=== PATIENT | female | born 2000 | race Caucasian/White ===

== ENCOUNTER 2019-01-14 02:05 | Emergency (ER) | payer SELFPAY ==
[2019-01-14] MEDS ORDERED: Ondansetron PF 4 MG/2 ML Vial ONE (02:54)
[2019-01-14 02:55] LABS: #Basophils 0.1 thou/uL (0.0-0.2); #Eosinphils 0.7 thou/uL (0.0-0.7); #Lymphocytes 3.3 thou/uL (1.20-3.40); #Monocytes 0.6 thou/uL (0.11-0.59); #Neutrophils 3.9 thou/uL (1.40-6.50); %Basophils 0.8 % (0.0-1.0); %Eosinophils 8.1 % (0.0-10.0); %Lymphocytes 38.5 % (28.0-48.0); %Monocytes 7.4 % (0.0-4.0); %Neutrophils 45.2 % (31.0-61.0); Hemoglobin 14.1 g/dL (12.0-16.0); Mean Corpuscular HGB CONC 34.4 g/dL (32.0-36.0); Mean Corpuscular Hemoglobin 30.7 pg (25.0-35.0); Mean Corpuscular Volume 89.2 fL (78.0-98.0); Mean Platelet Volume 6.8 fL (7.4-10.4); Platelet Count 306 thou/uL (130-400); RBC Distribution Width 10.8 % (11.5-14.5); Red Blood Cell (RBC) Count 4.58 mill/uL (4.00-5.20); White Blood Cell (WBC) Count 8.7 thou/uL (4.8-10.8)
[2019-01-14 03:17] LABS: ALT (SGPT) 10 U/L (8-55); AST (SGOT) 11 U/L (5-34); Albumin 4.4 g/dL (3.5-5.0); Alkaline Phosphatase 57 U/L (40-100); Anion Gap 12 mmol/L (10-20); BUN (Urea Nitrogen) 9 mg/dL (7.0-18.7); Bilirubin, Total 0.4 mg/dL (0.2-1.2); Calc. Creatinine Clearance 0 mL/min (70-130); Calcium 9.4 mg/dL (7.8-10.44); Carbon Dioxide 24 mmol/L (22-29); Chloride 109 mmol/L (98-107); Estimated GFR-MDRD Greater than 90; Globulin 2.7 g/dL (2.4-3.5); Glucose 85 mg/dL (70-105); Lipase 21 U/L (8-78); Potassium 3.6 mmol/L (3.5-5.1); Protein, Total 7.1 g/dL (6.0-8.3); Sodium 141 mmol/L (136-145)
[2019-01-14 04:10] LABS: Bilirubin Negative (Negative); Blood, Urine Negative (Negative); Clarity Clear (Clear); Glucose, Urine (Dipstick) Normal (Negative); Leukocyte 25 Leu/uL (Negative); Mucous/LPF 1+ LPF (<2+); Nitrite Negative (Negative); Protein, Urine (Dipstick) Negative (Neg-Trace); RBC/HPF 0-3 HPF (0-3); Renal Epithelial 0-3 HPF (None Seen); Urobilinogen Normal mg/dL (Less than 2)
[2019-01-14 04:16] LABS: Pregnancy Test - Urine (BHCG) Negative (Negative); Pregu Control Background? CLEAR/WHITE (CLR/WHITE); Pregu Control Bar Appear? YES (CONTROL BAR); Specific Gravity 1.022 (1.002-1.036)
[2019-01-14 04:23] LABS: Bacteria/HPF 1+ HPF (None Seen)
[2019-01-14] MEDS ORDERED: Ketorolac Tromethamine 30 MG/ML VIAL ONE (06:01)
--- NOTE | 2019-01-14 08:31 | CT ---
PRELIMINARY REPORT/[facility]/EMERGENCY AFTER HOURS PROCEDURE: PROCEDURE INFORMATION: Exam: CT Abdomen and pelvis with contrast Exam date and time: 01/14/2019 4:24 AM Clinical history: 18 years old, female; Abdominal pain; Acute; Patient HX: 18yof otherwise healthy pr esents with rlq pain. PT states pain started Friday morning in the periumbilical region. Worsened ov er the next day and now has had multiple episodes of nbnb emesis. PT states pain has migrated to her rlq and is described as constant, sharp, and 8/10. Also endorses subjective fevers and lack of appeti te today. TECHNIQUE: Imaging protocol: Computed tomography of the abdomen and pelvis with intravenous contrast. COMPARISON: No relevant prior studies available. FINDINGS: Liver: No acute findings. No mass. Gallbladder and bile ducts: No calcified stones. No ductal dilation. Pancreas: No acute findings. No mass. No ductal dilation. Spleen: No acute findings. No mass. Adrenals: No acute findings. No mass. Kidneys and ureters: No acute findings. No mass. No hydronephrosis. Stomach and bowel: Fecal loading. Diverticulosis. No evidence of bowel obstruction. Appendix: Normal appendix. Intraperitoneal space: No free air. No significant fluid collection. Vasculature: No acute findings. No abdominal aortic aneurysm. Lymph nodes: No significant lymphadenopathy. Bladder: No acute findings. Reproductive: No acute findings. Bones/joints: No acute fracture. Soft tissues: No acute findings. IMPRESSION: No acute findings. Thank you for allowing us to participate in the care of your patient. Dictated and Authenticated by: Darian Mccullough MD 01/14/2019 4:50 AM Central Time ([place] & [place]) FINAL REPORT EMERGENCY AFTER HOURS CT ABDOMEN AND PELVIS WITH IV CONTRAST: Oral contrast was administered. Multiplanar reconstruction. FINDINGS/IMPRESSION: No evidence of acute abnormality. The appendix is identified and appears unremarkable. I am in agreement with the preliminary report issued by [facility]. POS: [facility]
[2019-01-14] MEDS ORDERED: ISOVUE-370 76%-LOCM 1 ML ONE (10:13)
[2019-01-14] MEDS ORDERED: Iopamidol 370 76% 50 ML VIAL FS ONE (10:13)
== END 2019-01-14 06:13 | disposition home or self-care (01) ==
LOC: ERS 02:05 → EDBD 02:05 → ERS 06:13
DX: R10.31 Right lower quadrant pain (principal); J45.909 Unspecified asthma, uncomplicated; F41.9 Anxiety disorder, unspecified
CPT/HCPCS: 74177; 80053; 81003; 81015; 81025; 83690; 85025; 96361; 96374; 96375; J1885; J2405; Q9966; Q9967

== ENCOUNTER 2020-03-23 19:17 | Emergency (ER) | payer SELFPAY ==
[2020-03-23 20:04] LABS: Bacteria/HPF 3+ HPF (None Seen); Bilirubin Negative (Negative); Blood, Urine 2+ (Negative); Clarity Clear (Clear); Glucose, Urine (Dipstick) Normal (Negative); Ketone, Urine Trace mg/dL (Negative); Leukocyte 25 Leu/uL (Negative); Mucous/LPF 2+ LPF (<2+); Nitrite Negative (Negative); Protein, Urine (Dipstick) 10 mg/dL (Neg-Trace); RBC/HPF 0-3 HPF (0-3); Specific Gravity, Urine 1.019 (1.002-1.036)
--- NOTE | 2020-03-23 22:42 | ULT ---
US Pelvic W Doppler History: Pelvic pain Comparison: None. Findings: Real-time grayscale, color and spectral analysis of the pelvis was performed transabdominal approach. Single viable intrauterine with yolk sac measuring 3 mm, gestational sac measuring 1.85 cm, and a small pole of 0.33 cm with heart rate of 111 bpm. Right ovarian corpus luteum. No free fluid in the pelvis. Adequate vascular flow to both ovaries. Impression: Normal single viable uterine with ultrasound age 6 weeks 3 days.
== END 2020-03-23 23:34 | disposition home or self-care (01) ==
LOC: ERS 19:17
DX: O20.0 Threatened abortion (principal); Z3A.01 Less than 8 weeks gestation of pregnancy
CPT/HCPCS: 36415; 76856; 81003; 81015; 84702; 86900; 86901; 93976

== ENCOUNTER 2020-03-31 01:11 | Emergency (ER) | payer MEDICAID ==
[2020-03-31 01:38] LABS: #Basophils 0.1 thou/uL (0.0-0.2); #Eosinphils 0.1 thou/uL (0.0-0.7); #Lymphocytes 2.5 thou/uL (1.20-3.40); #Monocytes 0.8 thou/uL (0.11-0.59); #Neutrophils 6.7 thou/uL (1.40-6.50); %Basophils 0.8 % (0.0-1.0); %Eosinophils 1.3 % (0.0-10.0); %Lymphocytes 24.2 % (21.0-51.0); %Monocytes 8.1 % (0.0-10.0); %Neutrophils 65.5 % (42.0-75.0); Hemoglobin 13.4 g/dL (12.0-16.0); Mean Corpuscular HGB CONC 34.9 g/dL (32.0-36.0); Mean Corpuscular Hemoglobin 31.1 pg (27.0-31.0); Mean Platelet Volume 6.8 fL (7.4-10.4); Platelet Count 328 thou/uL (130-400); RBC Distribution Width 10.8 % (11.5-14.5); White Blood Cell (WBC) Count 10.2 thou/uL (4.8-10.8)
[2020-03-31 01:51] LABS: Bacteria/HPF 3+ HPF (None Seen); Bilirubin Negative (Negative); Blood, Urine 2+ (Negative); Clarity Clear (Clear); Glucose, Urine (Dipstick) Normal (Negative); Ketone, Urine Negative (Negative); Leukocyte 75 Leu/uL (Negative); Nitrite Negative (Negative); Protein, Urine (Dipstick) 20 mg/dL (Neg-Trace); RBC/HPF 0-3 HPF (0-3); Specific Gravity, Urine 1.029 (1.002-1.036); Urobilinogen Normal mg/dL (Less than 2)
[2020-03-31 01:57] LABS: ALT (SGPT) 17 U/L (8-55); AST (SGOT) 17 U/L (5-34); Albumin 4.1 g/dL (3.5-5.0); Alkaline Phosphatase 55 U/L (40-110); Anion Gap 13 mmol/L (10-20); BUN (Urea Nitrogen) 8 mg/dL (7.0-18.7); Bilirubin, Total 0.3 mg/dL (0.2-1.2); Calc. Creatinine Clearance 0 mL/min (70-130); Calcium 9.1 mg/dL (7.8-10.44); Carbon Dioxide 23 mmol/L (22-29); Chloride 104 mmol/L (98-107); Globulin 2.9 g/dL (2.4-3.5); Glucose 96 mg/dL (70-105); Potassium 3.9 mmol/L (3.5-5.1); Sodium 136 mmol/L (136-145)
--- NOTE | 2020-03-31 08:18 | ULT ---
PRELIMINARY REPORT/[facility]/EMERGENCY AFTER HOURS PROCEDURE: EXAM: US Obstetrical, Complete <14 weeks CLINICAL HISTORY: Pelvic pain x 1 day, brown discharge TECHNIQUE: Transabdominal imaging of the maternal pelvis and a <14 week gestation with image documentation. COMPARISON: None provided. FINDINGS: GESTATION: An intrauterine gestation is noted with a CRL of 11.5 mm corresponding to 7 weeks 2 days and demonstr ating a heartbeat of 145 bpm UTERUS: Unremarkable. No myometrial mass. Measures 9.1 x 4.8 x 6.2 cm CERVIX: Closed. Unremarkable. OVARIES: Unremarkable. No mass. The RIGHT side measures 2.0 x 2.7 x 2.2 cm and the LEFT side measures 2.9 x 1 .8 x 2.2 cm FREE FLUID: No free fluid. IMPRESSION: Single viable intrauterine . No acute abnormality. ELECTRONICALLY SIGNED BY: Osei Perez MD Mar 31, 2020 2:29:45 AM SENIOR WAREHOUSE CLERK This report is intended for review by the ordering physician only, in accordance of law. If you recei ve this report in error, please call [facility] at [phone]. FINAL REPORT OB ULTRASOUND, COMPLETE, LESS THAN 14 WEEKS: I agree with the preliminary report given by [facility]. POS: OFF
== END 2020-03-31 02:45 | disposition home or self-care (01) ==
LOC: ERS 01:11
DX: O99.891 Other specified diseases and conditions complicating pregnancy (principal); R10.9 Unspecified abdominal pain; Z3A.01 Less than 8 weeks gestation of pregnancy
CPT/HCPCS: 36415; 76856; 80053; 81003; 81015; 84702; 85025; 86900; 86901; 87086; 93976

== ENCOUNTER 2020-04-08 20:37 | Emergency (ER) | payer MEDICAID ==
[2020-04-08 21:20] LABS: #Basophils 0.1 thou/uL (0.0-0.2); #Eosinphils 0.1 thou/uL (0.0-0.7); #Lymphocytes 1.8 thou/uL (1.20-3.40); #Monocytes 0.6 thou/uL (0.11-0.59); #Neutrophils 7.2 thou/uL (1.40-6.50); %Basophils 0.6 % (0.0-1.0); %Eosinophils 1.1 % (0.0-10.0); %Lymphocytes 18.9 % (21.0-51.0); %Monocytes 5.9 % (0.0-10.0); %Neutrophils 73.6 % (42.0-75.0); Hemoglobin 12.5 g/dL (12.0-16.0); Mean Corpuscular HGB CONC 33.4 g/dL (32.0-36.0); Mean Corpuscular Hemoglobin 29.7 pg (27.0-31.0); Mean Corpuscular Volume 88.9 fL (78.0-98.0); Mean Platelet Volume 7.1 fL (7.4-10.4); Platelet Count 321 thou/uL (130-400); RBC Distribution Width 10.8 % (11.5-14.5); Red Blood Cell (RBC) Count 4.23 mill/uL (4.20-5.40); White Blood Cell (WBC) Count 9.8 thou/uL (4.8-10.8)
[2020-04-08] MEDS ORDERED: cefTRIAXone\\ROCEPHIN 250 MG VIAL ONE (22:28)
[2020-04-08] MEDS ORDERED: Azithromycin 250 MG TAB ONE (22:28)
[2020-04-08] MEDS ORDERED: Lidocaine 1% PF 5 ML VIAL ONE (22:29)
[2020-04-11 00:25] LABS: Chlamydia by PCR Not Detected (NotDetected); GC by PCR Not Detected (NotDetected)
== END 2020-04-08 22:58 | disposition home or self-care (01) ==
LOC: ERS 20:37
DX: O99.891 Other specified diseases and conditions complicating pregnancy (principal); R10.30 Lower abdominal pain, unspecified; Z3A.08 8 weeks gestation of pregnancy
CPT/HCPCS: 36415; 84702; 85025; 87480; 87491; 87510; 87591; 87660; 96372; 99284; J0696

== ENCOUNTER 2020-06-10 22:20 | Emergency (ER) | payer MEDICAID ==
[2020-06-11 00:02] LABS: #Eosinphils 0.1 thou/uL (0.0-0.7); #Lymphocytes 2.2 thou/uL (1.20-3.40); #Monocytes 0.7 thou/uL (0.11-0.59); #Neutrophils 6.8 thou/uL (1.40-6.50); %Basophils 0.5 % (0.0-1.0); %Eosinophils 1.2 % (0.0-10.0); %Lymphocytes 22.5 % (21.0-51.0); %Monocytes 7.1 % (0.0-10.0); %Neutrophils 68.7 % (42.0-75.0); Hemoglobin 11.3 g/dL (12.0-16.0); Mean Corpuscular HGB CONC 34.5 g/dL (32.0-36.0); Mean Corpuscular Hemoglobin 31.1 pg (27.0-31.0); Mean Corpuscular Volume 90.2 fL (78.0-98.0); Mean Platelet Volume 7.3 fL (7.4-10.4); Platelet Count 280 thou/uL (130-400); RBC Distribution Width 11.7 % (11.5-14.5); Red Blood Cell (RBC) Count 3.62 mill/uL (4.20-5.40)
--- NOTE | 2020-06-11 07:40 | ULT ---
PRELIMINARY REPORT/[facility]/AFTER HOURS PROCEDURE COMPLETE OBSTETRICAL ULTRASOUND AT LESS THAN FOURTEEN WEEKS: CLINICAL HISTORY: Vaginal bleeding. TECHNIQUE: Transabdominal imaging of the maternal pelvis and a less than 14-week gestation with image documenta tion. COMPARISON: OB ultrasound from 03/31/2020 at 1:55 a.m. SENIOR TRIAL ATTORNEY. FINDINGS: FETUS: There is a single living intrauterine gestation, estimated gestational age 18 weeks 0 days. POSITION: position is breech. HEART RATE: The heart rate is 155 beats per minute. BIOMETRICS: Based on composite biometry, the estimated gestational age by ultrasound is 18 week s 0 days corresponding to a due date of 11/11/2020. The estimated weight is 221 g. ANATOMIC SURVEY: The visualized anatomy is unremarkable. PLACENTA: The placenta is located anterior. No sonographic evidence for previa or abruption. AMNIOTIC FLUID: Within normal limits. UTERUS AND CERVIX: The cervix measures 3 cm. Dilated maternal vessels are noted in the lower uterine segment. IMPRESSION: Single viable intrauterine . No acute abnormality. ELECTRONICALLY SIGNED BY: Osei Perez MD Jun 11, 2020 12:34:39 AM SENIOR TRIAL ATTORNEY This report is intended for review by the ordering physician only, in accordance of law. If you recei ve this report in error, please call [facility] at [phone]. FINAL REPORT EMERGENT AFTER HOURS OB ULTRASOUND: HISTORY: An 18-week with small amount of vaginal bleeding. TECHNIQUE: Multiplanar hayes-scale and color Doppler transabdominal sonographic images are obtained. FINDINGS: There is a single intrauterine gestation in breech presentation. Cardiac Doppler demonstrates h eart tones with a heart rate of 155 beats per minute. The placenta is located anteriorly without evidence of placenta previa. Incidental note is made of prominent anechoic tubular structures lower uterine segment demonstrate increased flow likely due to prominent vessels. Subjectively, there is a normal amount of amniotic fluid The cervical length based on transabdominal imaging measur es 3.4 centimeters. BIOMETRY MEASUREMENTS: BPD: 3.88 cm (17 weeks 6 days) HC: 14.7 cm (17 weeks 6 days) AC: 13.19 cm (18 weeks 5 days) FL: 2.44 cm (17 weeks 3 days) The estimated gestational age by ultrasound is 18 weeks with an SERGE of 11/11/2020. Gestational age by the last menstrual period is 17 weeks 5 days. The estimated weight by ultrasound is 221 g (8 ounces). This represents 66th percentile for fet al weight. A 4-chambered heart is visualized. The cerebellum, visualized portions of the spine, kidneys, u rinary bladder, and cord insertion demonstrate a normal sonographic appearance. A three-vessel cord is not visualized but there is flow on either side of the urinary bladder suggest ing a three-vessel cord. No anomalies are seen. Adnexal structures not imaged. IMPRESSION: 1. Single intrauterine gestation in breech presentation with heart tones documented. Estimated gestational age by ultrasound is 18 weeks with estimated due date of 11/11/2020. 2. Estimated weight is 221 g (8 ounces). 3. Incidental note of prominent vessels lower uterine segment near distal aspect of the placenta. 4. Findings are in agreement with preliminary report by [facility]. CODE QA Transcribed Date/Time: 06/11/2020 8:07 AM
== END 2020-06-11 01:50 | disposition home or self-care (01) ==
LOC: ERS 22:20
DX: O20.9 Hemorrhage in early pregnancy, unspecified (principal); O99.512 Diseases of the respiratory system complicating pregnancy, second trimester; J45.909 Unspecified asthma, uncomplicated; Z3A.18 18 weeks gestation of pregnancy
CPT/HCPCS: 36415; 76815; 84702; 85025; 86900; 86901

== ENCOUNTER 2021-04-14 16:40 | Emergency (ER) | payer OTHER ==
[2021-04-14 17:19] LABS: #Basophils 0.1 thou/uL (0.0-0.2); #Eosinphils 0.3 thou/uL (0.0-0.7); #Lymphocytes 2.2 thou/uL (1.20-3.40); #Monocytes 0.7 thou/uL (0.11-0.59); #Neutrophils 4.5 thou/uL (1.40-6.50); %Basophils 1.2 % (0.0-1.0); %Eosinophils 3.8 % (0.0-10.0); %Lymphocytes 27.9 % (21.0-51.0); %Neutrophils 58.1 % (42.0-75.0); Hemoglobin 12.2 g/dL (12.0-16.0); Mean Corpuscular Hemoglobin 30.4 pg (27.0-31.0); Mean Corpuscular Volume 89.4 fL (78.0-98.0); Mean Platelet Volume 6.4 fL (7.4-10.4); Platelet Count 335 thou/uL (130-400); RBC Distribution Width 13.3 % (11.5-14.5); White Blood Cell (WBC) Count 7.8 thou/uL (4.8-10.8)
[2021-04-14 17:43] LABS: ALT (SGPT) 12 U/L (8-55); AST (SGOT) 11 U/L (5-34); Albumin 3.7 g/dL (3.5-5.0); Alkaline Phosphatase 88 U/L (40-110); Anion Gap 8 mmol/L (10-20); BUN (Urea Nitrogen) 8 mg/dL (7.0-18.7); Bilirubin, Total 0.5 mg/dL (0.2-1.2); Calc. Creatinine Clearance 0 mL/min (70-130); Calcium 8.9 mg/dL (7.8-10.44); Carbon Dioxide 26 mmol/L (22-29); Chloride 107 mmol/L (98-107); Glucose 96 mg/dL (70-105); Lipase 20 U/L (8-78); Potassium 3.7 mmol/L (3.5-5.1); Protein, Total 6.7 g/dL (6.0-8.3); Sodium 137 mmol/L (136-145)
[2021-04-14] MEDS ORDERED: Lidocaine 1% PF 5 ML VIAL ONE (18:57)
[2021-04-14] MEDS ORDERED: cefTRIAXone\\ROCEPHIN 500 MG VIAL ONE (18:57)
[2021-04-14 19:46] LABS: Pregnancy Test - Urine (BHCG) Negative (Negative); Pregu Control Background? CLEAR/WHITE (CLR/WHITE); Pregu Control Bar Appear? YES (CONTROL BAR)
[2021-04-14 19:47] LABS: Bilirubin Negative (Negative); Blood, Urine 3+ (Negative); Clarity Turbid (Clear); Glucose, Urine (Dipstick) Normal (Negative); Ketone, Urine Negative (Negative); Leukocyte 500 Leu/uL (Negative); Nitrite Negative (Negative); Protein, Urine (Dipstick) 20 mg/dL (Neg-Trace); Specific Gravity 1.023 (1.002-1.036); Specific Gravity, Urine 1.023 (1.002-1.036); Urobilinogen Normal mg/dL (Less than 2); pH, Urine 6.5 (5.0-9.0)
[2021-04-14 19:58] LABS: Bacteria/HPF 1+ HPF (None Seen)
[2021-04-15 20:00] LABS: Chlamydia by PCR DETECTED (NotDetected); GC by PCR DETECTED (NotDetected)
== END 2021-04-14 20:20 | disposition home or self-care (01) ==
LOC: ERS 16:40
DX: N73.9 Female pelvic inflammatory disease, unspecified (principal); N76.0 Acute vaginitis; J45.909 Unspecified asthma, uncomplicated; F17.290 Nicotine dependence, other tobacco product, uncomplicated; Z79.899 Other long term (current) drug therapy
CPT/HCPCS: 36415; 80053; 81003; 81015; 81025; 83690; 85025; 87480; 87491; 87510; 87591; 87660; 96372; 99284; J0696